=== PATIENT | female | born 1975 | race Caucasian/White ===

== ENCOUNTER 2016-07-04 21:22 | Emergency (ER) | payer BC ==
[2016-07-04 21:47] VITALS: BP 125/84
[2016-07-04] MEDS ORDERED: Phenazopyridine TAB* 100 MG PO ONE (23:08)
[2016-07-04] MEDS ORDERED: Sulfamethox/Trimethoprim DS 800/160* TAB PO ONE (23:08)
--- NOTE | 2016-07-04 23:11 | UC ---
Complaint Female HPI - HPI Summary HPI Summary: The patient comes in today for: 1. Dysuria and frequent urination. Onset: This mornibng. Palliative/provocative: Urination makes it worse. Quality: burning. Region: Severity: 11/13 Time: Comes and goes. Associated symptoms: Fevers: None. Hematuria: None Last UTI:--long time ago. Previous treatment: None. * - History Of Current Complaint Chief Complaint: UCGeneralIllness Stated Complaint: URINARY Time Seen by Provider: 07/04/16 23:02 Hx Obtained From: Patient Hx Last Menstrual Period: 06/28/16 - Allergies/Home Medications Allergies/Adverse Reactions: Allergies Allergy/AdvReac Type Severity Reaction Status Date / Time No Known Allergies Allergy Verified 07/04/16 21:47 PMH/Surg Hx/FS Hx/Imm Hx Previously Healthy: Yes Endocrine History Of: Denies: Diabetes, Thyroid Disease, Hyperthyroidism, Hypothyroidism, Dyslipidemia Cardiovascular History Of: Denies: Cardiac Disorders, Hypertension, Pacemaker/ICD, Myocardial Infarction , Congestive Heart Failure, Atrial Fibrillation, Deep Vein Thrombosis, Bleeding Disorders Respiratory History Of: Denies: COPD, Asthma, Bronchitis, Pneumonia, Pulmonary Embolism GI/ History Of: Reports: Kidney Stones - VISUALIZED WHEN PT HAD HER APPENDECTOMY Denies: Gastroesophageal Reflux, Ulcer, Gastrointestinal Bleed, Gall Bladder Disease, Diverticulitis, Renal Disease, Urosepsis Neurological History Of: Denies: TIA, CVA, Dementia, Seizures, Migraine Psychological History Of: Reports: Anxiety - untreated Denies: Depression, Bipolar Disorder, Schizophrenia, Post Traumatic Stress Disorder Cancer History Of: Denies: Lung Cancer, Colorectal Cancer, Breast Cancer, Prostate Cancer, Cervical Cancer Other History Of: Negative For: HIV, Hepatitis B, Hepatitis C, Anticoagulant Therapy - Surgical History Surgical History: Yes Surgery Procedure, Year, and Place: 2013 - Family History Known Family History: Negative: Cardiac Disease, Hypertension Family History: no cardio vascular issues in family lineage - Social History Occupation: Employed Full-time Alcohol Use: Daily Alcohol Amount: 1/2 GLASS OF WINE EACH EVENING Substance Use Type: None Smoking Status (MU): Never Smoked Tobacco Review of Systems Constitutional: Negative Skin: Negative Eyes: Negative ENT: Negative Respiratory: Negative Cardiovascular: Negative Gastrointestinal: Negative Genitourinary: Dysuria, Frequency, Urgency All Other Systems Reviewed And Are Negative: Yes Physical Exam Triage Information Reviewed: Yes Appearance: Well-Appearing, No Pain Distress, Well-Nourished Vital Signs: Initial Vital Signs Temp 98.2 F 07/04/16 21:39 Pulse 79 07/04/16 21:39 Resp 12 07/04/16 21:39 BP 125/84 07/04/16 21:39 Pulse Ox 100 07/04/16 21:39 Vital Signs Reviewed: Yes Eyes: Positive: Conjunctiva Clear. Negative: Discharge ENT: Positive: Hearing grossly normal. Negative: Pharyngeal erythema, Nasal congestion, Nasal drainage, TM bulging, TM dull, TM red, Tonsillar swelling, Tonsillar exudate Dental: Negative: Gross Decay/Caries @, Dental Fracture @ Neck: Positive: Supple, Nontender, No Lymphadenopathy. Negative: Nuchal Rigidity Respiratory: Positive: Chest non-tender, No respiratory distress, No accessory muscle use. Negative: Crackles, Wheezing Cardiovascular: Positive: RRR, No Murmur Abdomen Description: Positive: Nontender, No Organomegaly, Soft. Negative: CVA Tenderness (R), CVA Tenderness (L), Distended, Guarding Musculoskeletal: Positive: Strength Intact, ROM Intact, No Edema Neurological: Positive: Alert, Muscle Tone Normal Psychological: Positive: Age Appropriate Behavior, Consolable Skin: Negative: rashes, breakdown Diagnostics - Laboratory Diagnostic Studies Completed/Ordered: Urine screen: Specific gravity: 1.010. Bacterial: 1+. Nitrite: (-). Blood: 3+. Protein: (-). Glucose: (-) Complaint Female Dx - Differential Dx/Diagnosis Differential Diagnosis/HQI/PQRI: Ureteral Stone, Urinary Tract Infection Provider Diagnoses: UTI Discharge - Discharge Plan Condition: Stable Disposition: HOME Patient Education Materials: Urinary Tract Infection in Women (ED) Referrals: Clare Carcamo MD [Primary Care Provider] - 1 Week (Please see your primary care provider in about one to two weeks to see how well you are doing. If you get worse, please be seen sooner.)
== END 2016-07-04 23:27 | disposition home or self-care (01) ==
LOC: UCCORT 21:22
DX: N39.0 Urinary tract infection, site not specified (principal); Z87.442 Personal history of urinary calculi
CPT/HCPCS: 81003; 87077; 87086; 87186; 99212; A9270-GY; G0463

== ENCOUNTER 2017-04-30 11:32 | Emergency (ER) | payer BC ==
[2017-04-30 12:13] VITALS: BP 126/77
--- NOTE | 2017-04-30 14:38 | UC ---
Complaint Female HPI - HPI Summary HPI Summary: c/o dysuria x 1 day - no flank pain, fever/chills present. drinking lots of water daily - History Of Current Complaint Chief Complaint: UCGU Stated Complaint: URINARY Time Seen by Provider: 04/30/17 14:26 Hx Obtained From: Patient Hx Last Menstrual Period: 04/16/17 Onset/Duration: Sudden Onset Timing: Intermittent Severity Initially: Moderate Severity Currently: Moderate Pain Intensity: 8 Character: Burning Aggravating Factor(s): Urination Associated Signs And Symptoms: Positive: Negative - Risk Factors Ectopic Risk Factor: Negative - Allergies/Home Medications Allergies/Adverse Reactions: Allergies Allergy/AdvReac Type Severity Reaction Status Date / Time No Known Allergies Allergy Verified 04/30/17 12:08 PMH/Surg Hx/FS Hx/Imm Hx Previously Healthy: Yes Other History Of: Negative For: HIV, Hepatitis B, Hepatitis C, Anticoagulant Therapy - Surgical History Surgical History: Yes Surgery Procedure, Year, and Place: app2013 - Family History Known Family History: Negative: Cardiac Disease, Hypertension Family History: no cardio vascular issues in family lineage - Social History Alcohol Use: Rare Alcohol Amount: 1/2 GLASS OF WINE EACH EVENING Substance Use Type: None Smoking Status (MU): Never Smoked Tobacco Review of Systems Constitutional: Negative Skin: Negative Eyes: Negative ENT: Negative Respiratory: Negative Cardiovascular: Negative Gastrointestinal: Abdominal Pain Genitourinary: Dysuria Musculoskeletal: Negative Neurological: Negative Is Patient Immunocompromised?: No All Other Systems Reviewed And Are Negative: Yes Physical Exam Triage Information Reviewed: Yes Appearance: Well-Appearing Vital Signs: Initial Vital Signs Temp 99.3 F 04/30/17 12:08 Pulse 83 04/30/17 12:08 Resp 18 04/30/17 12:08 BP 126/77 04/30/17 12:08 Pulse Ox 100 04/30/17 12:08 Vital Signs Reviewed: Yes Eye Exam: Normal Abdominal Exam: Normal Neurological Exam: Normal Psychological Exam: Normal Skin Exam: Normal Complaint Female Dx - Course Course Of Treatment: urine obtained - results + leukocytes, and blood culture will be sent will be called with results. take abx as directed - discussed use and common side effects of med. continue drinking lots of water daily while on abx. f/u if symptoms not resolving - Differential Dx/Diagnosis Provider Diagnoses: UTI Discharge - Discharge Plan Condition: Good Disposition: HOME Prescriptions: Phenazopyridine 200 mg (NF) [Pyridium 200 MG tab *] 200 mg PO TID PRN 3 Days #9 tab MDD three PRN Reason: Spasms Sulfamethox/Trimethoprim DS* [Bactrim DS 800/160 TAB*] 1 tab PO BID 7 Days #14 tab Patient Education Materials: Urinary Tract Infection in Women (ED) Referrals: Clare Carcamo MD [Primary Care Provider] - 1 Week
== END 2017-04-30 14:59 | disposition home or self-care (01) ==
LOC: UCCORT 11:32
DX: N39.0 Urinary tract infection, site not specified (principal)
CPT/HCPCS: 81003; 87086; 99212; G0463

== ENCOUNTER 2017-10-21 16:41 | Emergency (ER) | payer BC ==
[2017-10-21 17:00] VITALS: BP 118/88
--- NOTE | 2017-10-21 17:14 | UC ---
Laceration HPI - HPI Summary HPI Summary: Cut right dorsal index finger over the prox IP joint. Flap is still there just not healing completely - History Of Current Complaint Chief Complaint: UCLaceration Stated Complaint: LACERATON RIGHT INDEX FINGER Time Seen by Provider: 10/21/17 17:06 Hx Obtained From: Patient Hx Last Menstrual Period: current Laceration Location: Finger - right index Mechanism Of Injury: Sharp Trauma - with a grator Onset/Duration: Sudden Onset, Lasting Days - 8 Severity: Mild Pain Intensity: 1 Aggravating Factors: Movement Related History: Dominant Hand Right - Allergies/Home Medications Allergies/Adverse Reactions: Allergies Allergy/AdvReac Type Severity Reaction Status Date / Time No Known Allergies Allergy Verified 04/30/17 12:08 Home Medications: Home Medications NK [No Home Medications Reported] 10/21/17 [History Confirmed 10/21/17] PMH/Surg Hx/FS Hx/Imm Hx Previously Healthy: Yes Other History Of: Negative For: HIV, Hepatitis B, Hepatitis C, Anticoagulant Therapy - Surgical History Surgical History: Yes Surgery Procedure, Year, and Place: 2013 - Family History Known Family History: Negative: Cardiac Disease, Hypertension, Diabetes Family History: no cardio vascular issues in family lineage - Social History Occupation: Employed Full-time Lives: With Family Alcohol Use: Occasionally Alcohol Amount: 1/2 GLASS OF WINE EACH EVENING Substance Use Type: None Smoking Status (MU): Never Smoked Tobacco Cessation Counseling: Patient Advised to Stop Review of Systems Musculoskeletal: Arthralgia - right index PIP Is Patient Immunocompromised?: No All Other Systems Reviewed And Are Negative: Yes Physical Exam Triage Information Reviewed: Yes Appearance: Well-Appearing, No Pain Distress, Well-Nourished Vital Signs: Initial Vital Signs Temp 98.7 F 10/21/17 16:54 Pulse 79 10/21/17 16:54 Resp 12 10/21/17 16:54 BP 118/88 10/21/17 16:54 Pulse Ox 99 10/21/17 16:54 Vital Signs Reviewed: Yes Eyes: Positive: Conjunctiva Clear Neck exam: Normal Respiratory Exam: Normal Cardiovascular Exam: Normal Musculoskeletal: Positive: ROM Limited @ - Right index PIP flexion. Neurological Exam: Normal Psychological Exam: Normal Skin: Positive: Other - healing flap laceration on the dorsal right index finger over the PIP Laceration Repair - Laceration Repair 1 Description: Irregular - circular : No Repair Necessary - Done 8 days ago. Laceration Course/Dx - Differential Dx - Laceration/Wound Differental Diagnoses: Abrasion, Avulsion, Dehiscence, Laceration Provider Diagnoses: Healing laceration right index finger. Discharge - Sign-Out/Discharge Documenting (check all that apply): Patient Departure - Discharge Plan Condition: Stable Disposition: HOME Patient Education Materials: Finger Laceration (ED), Laceration Without Closure (ED) Referrals: Clare Carcamo MD [Primary Care Provider] - Additional Instructions: Keep it covered continuously with bandaid and antibiotic ointment. Change twice a day. Do range of motion exercises on the finger to help the flexion. If not getting better get referral to occupational therapy - Billing Disposition and Condition Condition: STABLE Disposition: Home
== END 2017-10-21 17:25 | disposition home or self-care (01) ==
LOC: UCCORT 16:41
DX: S61.210A Laceration without foreign body of right index finger without damage to nail, initial encounter (principal); W45.8XXA Other foreign body or object entering through skin, initial encounter; Y93.9 Activity, unspecified; Y92.9 Unspecified place or not applicable
CPT/HCPCS: 99211; G0463